=== PATIENT | female | born 1980 | race Caucasian/White ===

== ENCOUNTER 2016-11-07 00:08 | Inpatient (IN) | payer OTHER ==
[2016-11-07 01:10] LABS: Hematocrit 37 % (35-47); Hemoglobin 12.3 g/dl (12.0-16.0); Mean Corpuscular HGB Conc 34 g/dl (31-36); Mean Corpuscular Hemoglobin 27 pg (27-31); Mean Corpuscular Volume 79 fL (80-97); Mean Platelet Volume 9 um3 (7.4-10.4); Red Cell Distribution Width 14 % (10.5-15); White Blood Count 14.5 10^3/ul (3.5-10.8)
[2016-11-07] MEDS ORDERED: Glycerin ADULT SUPP PR PRN (03:15)
[2016-11-07] MEDS ORDERED: Witch Hazel PAD* JAR TOPICAL PRN (03:15)
[2016-11-07] MEDS ORDERED: OXYTOCIN* 10 UNITS/ML 1 ML VIAL IM ONE (03:15)
[2016-11-07] MEDS ORDERED: Dibucaine 1% 28.35 GM TUBE PR PRN (03:15)
[2016-11-07] MEDS ORDERED: Acetaminophen TAB* 325 MG PO PRN (03:15)
[2016-11-07] MEDS: Ibuprofen TAB* 600 MG PO PRN ×4 (03:32→22:58)
[2016-11-07] MEDS ORDERED: Simethicone CHEW TAB* 80 MG PO SCH (08:30)
[2016-11-07] MEDS: Docusate CAP* 100 MG PO SCH ×4 (10:17→20:41)
[2016-11-08] MEDS: Ibuprofen TAB* 600 MG PO PRN ×3 (05:58→18:05)
[2016-11-08 07:04] LABS: Hematocrit 29 % (35-47); Hemoglobin 9.9 g/dl (12.0-16.0); Mean Corpuscular HGB Conc 34 g/dl (31-36); Mean Corpuscular Hemoglobin 27 pg (27-31); Mean Corpuscular Volume 79 fL (80-97); Mean Platelet Volume 8 um3 (7.4-10.4); Red Blood Count 3.67 10^6/ul (4.0-5.4); Red Cell Distribution Width 14 % (10.5-15); White Blood Count 15.3 10^3/ul (3.5-10.8)
[2016-11-08] MEDS: Ferrous Gluconate TAB* 324 MG TAB PO SCH ×2 (08:20→21:00)
[2016-11-08] MEDS: Docusate CAP* 100 MG PO SCH ×3 (08:20→21:00)
[2016-11-09] MEDS: Ibuprofen TAB* 600 MG PO PRN ×2 (00:09→08:32)
[2016-11-09 08:00] VITALS: BP 105/65
[2016-11-09] MEDS: Docusate CAP* 100 MG PO SCH (08:32)
[2016-11-09] MEDS ORDERED: RHO D Immune Globulin (HUMAN)* 300 MCG = 1,500 I.U. INJ IM ONE (10:44)
== END 2016-11-09 11:17 | disposition home or self-care (01) | DRG 775 ==
LOC: MCHOBOUT 00:08 → MCHOB 01:04
PROVIDERS: ADMIT Obstetrics & Gynecology; ATTEND Obstetrics & Gynecology
PROC: 10E0XZZ Delivery of Products of Conception, External Approach (ICD-10-PCS; principal; 2016-11-07)
PROC: 10907ZC Drainage of Amniotic Fluid, Therapeutic from Products of Conception, Via Natural or Artificial Opening (ICD-10-PCS; 2016-11-07)
PROC: 0HQ9XZZ Repair Perineum Skin, External Approach (ICD-10-PCS; 2016-11-07)
PROC: 4A1HXCZ Monitoring of Products of Conception, Cardiac Rate, External Approach (ICD-10-PCS; 2016-11-07)
DX: O70.0 First degree perineal laceration during delivery (principal); O90.81 Anemia of the puerperium; Z37.0 Single live birth; O09.523 Supervision of elderly multigravida, third trimester; Z3A.39 39 weeks gestation of pregnancy
CPT/HCPCS: 36415; 85025; 85027; 85461; 86850; 86900; 86901; A9270-GY; J2590; J2790

== ENCOUNTER 2018-04-01 13:38 | Emergency (ER) | payer OTHER ==
--- NOTE | 2018-04-01 14:10 | ED ---
Shortness of Breath - HPI Summary HPI Summary: This patient is a 37 year old F presenting to [facility] with a chief complaint of shortness of breath since 13:00. Patient notes she feels like she cant take a deep breath and like her chest is tight. Patient reports her symptoms began after she came home from a hike today. Patient is 14 weeks in her 3rd . The patient rates the pain 0/10 in severity. Symptoms aggravated by nothing. Symptoms alleviated by nothing. Patient reports rapid heart rate, discomfort in back left of rib cage. Patient also notes intermittent pain in her right calf for 1 month. Patient denies any abdominal cramps, fever, diaphoresis, chills, rash, cough, back pain, dysuria, or lower extremity edema. Patient denies any PMHx. Patient takes vitamins. Patient reports that she took a [address] trip, 4 hours in total, but took breaks along the way. - History of Current Complaint Chief Complaint: EDShortnessOfBreath Time Seen by Provider: 04/01/18 13:50 Hx Obtained From: Patient Onset/Duration: Sudden Onset, Lasting Hours - 1 hour, Still Present Timing: Constant Current Severity: Mild Dyspnea At: Rest Aggrevating Factors: Nothing Alleviating Factors: Nothing - Allergy/Home Medications Allergies/Adverse Reactions: Allergies Allergy/AdvReac Type Severity Reaction Status Date / Time No Known Allergies Allergy Verified 04/01/18 13:47 PMH/Surg Hx/FS Hx/Imm Hx Endocrine/Hematology History: Denies: Hx Diabetes, Hx Thyroid Disease Cardiovascular History: Denies: Hx Hypertension Respiratory History: Denies: Hx Asthma, Hx Chronic Obstructive Pulmonary Disease (COPD) GI History: Denies: Hx Ulcer - Surgical History Surgery Procedure, Year, and Place: none Infectious Disease History: No Infectious Disease History: Denies: Hx Hepatitis, Hx Human Immunodeficiency Virus (HIV), Traveled Outside the [place] in Last 30 Days - Family History Known Family History: Positive: None - patient denies relevant FHx - Social History Alcohol Use: None Substance Use Type: Reports: None Smoking Status (MU): Never Smoked Tobacco Review of Systems Negative: Fever, Chills Negative: Erythema Negative: Sore Throat Positive: Palpitations - rapid heartrate. Negative: Chest Pain Positive: Shortness Of Breath. Negative: Cough Negative: Abdominal Pain, Vomiting, Nausea Negative: dysuria, hematuria Negative: Myalgia, Edema Negative: Rash Neurological: Other - negative dizziness All Other Systems Reviewed And Are Negative: Yes Physical Exam - Summary Physical Exam Summary: Constitutional: Well-developed, Well-nourished, Alert. Appears anxious. Skin: Warm, Dry HENT: Normocephalic; Atraumatic Eyes: Conjunctiva normal Neck: Musculoskeletal ROM normal neck. (-) JVD, (-) Stridor, (-) Tracheal deviation Cardio: Heart sounds normal; Intact distal pulses; The pedal pulses are 2+ and symmetric. Radial pulses are 2+ and symmetric. (-) Murmur. HR is between 120 and 130 bpm and is regular Pulmonary/Chest wall: Effort normal. (-) Respiratory distress, (-) Wheezes, (-) Rales Abd: Soft, (-) epigastric tenderness, (-) Distension, (-) Guarding, (-) Rebound Musculoskeletal: (-) Edema Lymph: (-) Cervical adenopathy Neuro: Alert, Oriented x3 Psych: Mood and affect Normal Triage Information Reviewed: Yes Vital Signs On Initial Exam: Initial Vitals Temp Pulse Resp BP Pulse Ox 97.8 F 133 22 130/91 100 04/01/18 13:43 04/01/18 13:43 04/01/18 13:43 04/01/18 13:43 04/01/18 13:43 Vital Signs Reviewed: Yes Diagnostics - Vital Signs Vital Signs Temp Pulse Resp BP Pulse Ox 04/01/18 13:43 97.8 F 133 22 130/91 100 - Laboratory Result Diagrams: 04/01/18 14:36 04/01/18 14:36 Lab Statement: Any lab studies that have been ordered have been reviewed, and results considered in the medical decision making process. - CT CTA Chest CT Interpretation: No Acute Changes - IMPRESSION: No evidence of pulmonary embolus is noted. No evidence of alveolar consolidation is noted. Dr. Walker has reviewed this report. CT Interpretation Completed By: Radiologist - EKG 14:18 Cardiac Rate: Tachycardia - at 116 bpm EKG Rhythm: Sinus Tachycardia - junctional EKG Interpretation: Junctional tachycardia at 116 bpm - Additional Comments Diagnostic Additional Comments: Venous Doppler Study Interpreted by radiologist. IMPRESSION: NO EVIDENCE OF DEEP VENOUS THROMBOSIS IS IDENTIFIED. Dr. Walker has reviewed this report. Re-Evaluation - Re-Evaluation 1st re-evaluation Re-Evaluation Time: 15:45 Change: Unchanged Comment: Discussed imaging results with patient. She agreed to the CTA Chest. 2nd re-eval Re-Evaluation Time: 16:37 Change: Unchanged Comment: Patient states that her resting HR is usually between 50-50 bpm and when she exerts herself it is around 70 bpm. 3rd re-eval Re-Evaluation Time: 17:15 Change: Improved Comment: Pt spontaneously converted to NSR. Discussed discharge plan with patient. Course/Dx - Course Course Of Treatment: This patient is a 14 week 37 year old F reporting shortness of breath and rapid HR since 13:00. Patient also notes intermittent right calf pain since 1 month ago. Explained the risks of radiation from imaging on the baby. Patient notes she has already discussed this with her engineering drawings checker, Gricel, and she had cleared her for imaging as needed. An EKG reveals junctional tachycardia at 116 bpm. Patient consented to the CTA chest. Venous Doppler study reveals, per radiologist, no evidence of DVT. CTA chest reveals, per radiologist, No evidence of pulmonary embolus is noted. No evidence of alveolar consolidation is noted. ED physician has reviewed these radiology reports. Discussed care with Dr. Salas, cash control specialist at 15:00. He recommends a pulmonary embolism workup and does not believe her symptoms are related to HR. Dr. Salas recommended getting a troponin level and giving adenosine and beta blockers if the CTA chest was negative. Test results with no significant abnormalities. In the ED course the patient was given contrast and adenosine. Pt spontaneously converted from SVT to normal cardiac rhythm in the 80s. SOB resolved at the same time she converted. At 17:11 Dr. Salas, cash control specialist, recommended giving beta blockers but given that it is category C in and she converted, we will hold off. Discussed this with patient and she agreed. Patient will be discharged home with follow up from cardiology, [facility], and PCP in 2-3 days. The patient is agreeable with this plan. - Diagnoses Provider Diagnoses: SVT (supraventricular tachycardia) - Physician Notifications Discussed Care of Patient With: Jose Salas Time Discussed With Above Provider: 15:00 Instructed by Provider To: Other - Dr. Salas recommended a pulmonary embolism workup. He did not believe her symptoms were related to HR. At 16:05, Dr. Salas recommended taking the patient's troponin and giving her adenosine and beta blockers if the CTA Chest is negative. At 17:11, Dr. Salas Discharge - Sign-Out/Discharge Documenting (check all that apply): Patient Departure - Discharge Plan Condition: Stable Disposition: HOME Patient Education Materials: Supraventricular Tachycardia (ED) Referrals: Kathrin Lezama MD [Primary Care Provider] - 2 Days (Follow up with primary care physician in 2-3 days) [facility] [Outside] - 2 Days Jose Salas DO [Medical Doctor] - 2 Days Additional Instructions: Follow up with Dr. Salas, cash control specialist, as well as primary care physician and [facility] in 2-3 days. Return the emergency department with any new or worsening symptoms. - Attestation Statements Document Initiated by Scribe: Yes Documenting Scribe: Melany Coombs Provider For Whom Scribe is Documenting (Include Credential): Fabrice Walker MD Scribe Attestation: Melany Lopez, scribed for Fabrice Walker MD on 04/01/18 at 1712.
[2018-04-01 14:43] LABS: Hematocrit 37 % (35-47); Hemoglobin 12.6 g/dl (12.0-16.0); Mean Corpuscular HGB Conc 34 g/dl (31-36); Mean Corpuscular Hemoglobin 28 pg (27-31); Mean Corpuscular Volume 81 fL (80-97); Mean Platelet Volume 8.8 um3 (7.4-10.4); Platelet Count 212 10^3/ul (150-450); Red Blood Count 4.55 10^6/ul (4.00-5.40); Red Cell Distribution Width 14 % (10.5-15); White Blood Count 10.7 10^3/ul (3.5-10.8)
[2018-04-01 15:04] LABS: EGFR Non-African American 96.3 (>60)
--- NOTE | 2018-04-01 15:36 | RAD ---
Indication: Right calf pain. Duplex Doppler sonography of the deep venous system of the right lower extremity deep venous system was performed. Bilaterally the common femoral veins appear patent and compressible. Right proximal greater saphenous vein, proximal deep femoral vein, femoral vein, popliteal vein, posterior tibial veins and peroneal veins appear patent and compressible. IMPRESSION: NO EVIDENCE OF DEEP VENOUS THROMBOSIS IS IDENTIFIED.
[2018-04-01] MEDS ORDERED: Iohexol 350* (CONTRAST) 500 ML MDV IV ONE (15:45)
--- NOTE | 2018-04-01 16:11 | RAD ---
Indication: Pleuritic chest pain, shortness of breath Contrast: Administered 60.0 ml of OMNIPAQUE 350 mg/ml CTA of the chest performed after IV contrast administration. Coronal and sagittal reconstructed images were obtained. The pulmonary arterial tree is well opacified. There are no filling defects present to suggest pulmonary embolus. There is no mediastinal or hilar adenopathy noted. The heart demonstrates no pericardial effusion. The trachea and major bronchi appear patent. Lung kirby demonstrate no pleural fluid, pneumonia or pneumothorax. No evidence of alveolar consolidation is noted. The visualized abdominal organs are unremarkable. The visualized bony structures are grossly unremarkable. IMPRESSION: No evidence of pulmonary embolus is noted. No evidence of alveolar consolidation is noted.
[2018-04-01] MEDS ORDERED: Adenosine* 3 MG/ML VIAL IV PUSH ONE (16:30)
[2018-04-01 17:37] VITALS: BP 107/72
== END 2018-04-01 17:36 | disposition home or self-care (01) ==
LOC: ED 13:38
DX: I47.1 Supraventricular tachycardia (principal); R00.2 Palpitations; R06.02 Shortness of breath
CPT/HCPCS: 36415; 71275; 80048; 84439; 84443; 84484; 85027; 85652; 86140; 93005; 96374; 99283; Q9967

== ENCOUNTER 2018-09-20 06:11 | Inpatient (IN) | payer OTHER ==
[2018-09-20] MEDS ORDERED: Penicillin G Potassium IV* 5,000,000 UNITS in NS 0.9% 100 ML* 100 ML IVPB ONE (06:28)
[2018-09-20] MEDS ORDERED: Buffered Lidocaine 1% SYRIN* 1 ML/SYRINGE INTRADERM ONE (06:28)
[2018-09-20] MEDS ORDERED: Lactated Ringers 1000 ML Bag* 1,000 ML IV ONE (06:28)
[2018-09-20] MEDS ORDERED: Penicillin G Potassium IV* 5 MILLION.UNITS VIAL ONE (06:28)
[2018-09-20] MEDS ORDERED: Lactated Ringers 1000 ML Bag* 1,000 ML IV SCH ×2 (07:00→08:00)
[2018-09-20] MEDS ORDERED: Oxytocin in LR* 0 UNITS/0 ML BAG IVPB ONE (07:10)
[2018-09-20 07:13] LABS: ABS Basophils 0.1 10^3/ul (0-0.2); ABS Eosinophils 0 10^3/ul (0-0.6); ABS Lymphocytes 2.3 10^3/ul (1.0-4.8); ABS Monocytes 0.8 10^3/ul (0-0.8); ABS Neutrophils 8.9 10^3/ul (1.5-7.7); ABS Nucleated RBC 0 10^3/ul; Eosinophil % 0.4 %; Hematocrit 37 % (35-47); Hemoglobin 12.2 g/dl (12.0-16.0); Mean Corpuscular HGB Conc 34 g/dl (31-36); Mean Corpuscular Hemoglobin 27 pg (27-31); Mean Corpuscular Volume 80 fL (80-97); Mean Platelet Volume 8.5 fL (7.4-10.4); Nucleated Red Blood Cells % 0.1; Platelet Count 269 10^3/ul (150-450); Red Blood Count 4.57 10^6/ul (4.00-5.40); Red Cell Distribution Width 14 % (10.5-15); White Blood Count 12.1 10^3/ul (3.5-10.8)
[2018-09-20] MEDS ORDERED: Ibuprofen TAB* 600 MG ONE (07:31)
[2018-09-20] MEDS ORDERED: Dibucaine 1% 28.35 GM TUBE PR PRN (07:44)
[2018-09-20] MEDS ORDERED: Acetaminophen TAB* 325 MG PO PRN (07:44)
[2018-09-20] MEDS ORDERED: Glycerin ADULT SUPP PR PRN (07:44)
[2018-09-20] MEDS ORDERED: Witch Hazel PAD* JAR TOPICAL PRN (07:44)
--- NOTE | 2018-09-20 07:57 | HP ---
General Information - Reason for Visit labor - General Information Maternal Age: 38 Grav: 3 Para: 2 SAB: 0 IEA: 0 Estimated Due Date: 09/26/18 Determined By: Early Ultrasound Maternal Blood Type and Rh: A Negative - Results this Serology/RPR Result: Non-Reactive Rubella Result: Immune HBsAg Result: Negative HIV Result: Negative GBS Culture Result: Positive Past Medical History Delivery History: Hx Uncomplicated Vaginal Delivery Pertinent Past Medical History: Non-Contributory Pertinent Past Surgical History: None Pertinent Family History: Non-Contributory - Antepartal Records Antepartal Records: Reviewed, Uncomplicated Review of Systems Constitutional: Comfortable CV Complaint: No Respiratory: Shortness of Breath: No Gastrointestinal: No Nausea/Vomiting Genitourinary: Leaking Fluid, No Bleeding Musculoskeletal: No Epigastric Pain, Contractions Movement: Normal Exam Allergies/Adverse Reactions: Allergies No Known Allergies Allergy (Verified 04/01/18 13:47) Vital Signs 09/20/18 07:45 Temperature 97.6 F Pulse Rate 84 Respiratory 18 Rate Blood Pressure 111/63 (mmHg) Lab Values - Entire Visit: Laboratory Tests 09/20/18 09/20/18 06:33 06:33 WBC 12.1 H RBC 4.57 Hgb 12.2 Hct 37 MCV 80 MCH 27 MCHC 34 RDW 14 Plt Count 269 MPV 8.5 Neut % (Auto) 73.2 Lymph % (Auto) 19.0 [place] % (Auto) 6.6 Eos % (Auto) 0.4 Baso % (Auto) 0.8 Absolute Neuts (auto) 8.9 H Absolute Lymphs (auto) 2.3 Absolute Monos (auto) 0.8 Absolute Eos (auto) 0 Absolute Basos (auto) 0.1 Absolute Nucleated RBC 0 Nucleated RBC % 0.1 Blood Type A Negative Antibody Screen Positive - Measurements Height: 5 ft 6 in Weight: 160 lb Weight in lbs: 160.242641 Body Mass Index (BMI): 25.8 Pre- Weight: 128 lb Weight Gained This : 32 lbs and 0 ozs - Exam Breast: Breast Exam Deferred Heart: Normal Rhythm/Heart Sounds - Ultrasound/Biophysical Profile Ultrasound Status: Not Done Targeted Exam Findings See L&D Outpatient Visit Provider Note for Findings: Yes Cervical Exam: Rim Effacement: 100% Station: +2 Presenting Part: Vertex Membrane Status: Intact Bleeding/Discharge: None EFM Findings - External Monitor Findings Baseline Heart Rate: 135 External Monitor Findings: Accelerations Present, No Pattern of Variable or Late Decelerations, Variability Moderate, Baseline Stable Contractions: Regular Assessment/Plan - Assessment Active labor. - Obstetrical Risk Factors Obstetrical Risk Factors: GBS Positive - Plan Plan: Antibiotic Prophylaxis, Admit - Anticipate Vaginal Delivery
--- NOTE | 2018-09-20 08:25 | PROCNOTE ---
[facility] OB: Delivery Note - Delivery A Date of : 09/20/18 Time of : 07:01 Bonnie Sex: Male Weight at : 8 lb 12 oz Score 1 Minute: 9 Score 5 Minutes: 9 Gestational Age in Weeks and Days at Delivery: 39 Weeks and 1 Days Delivery Method: Spontaneous Vaginal Labor: Spontaneous Did Patient attempt ?: N/A, No Previous Amniotic Fluid: Clear Estimated Blood Loss: 300 Anesthesia/Analgesia: None Delivered By: Irais Patel - Nursery Level of Nursery: Regular/Bedside - Perineum Perineal Injury: Perineal Laceration, 1st Degree - Events Delivery Events of Note: Partial Course of Antibiotics - Additional Delivery Notes Additional Delivery Notes: Pt arrived in active labor, received her GBS prophylaxis and then underwent AROM. She was fully dilated at this point. She pushed about 10min to deliver the infant in ASIA position followed by the shoulders and the rest of the body. The baby was placed on mom's abdomen. After >1min the cord was clamped x2 and cut by dad. The placenta delivered with gentle cord traction and fundal massage. A small first degree lac was repaired with 2 [id number] sutures. Fundus was firm with good hemostasis. Mom and baby stable.
[2018-09-20] MEDS: Docusate CAP* 100 MG PO SCH ×3 (08:40→21:39)
[2018-09-20] MEDS: Ibuprofen TAB* 600 MG PO PRN ×2 (15:24→21:25)
[2018-09-21] MEDS: Ibuprofen TAB* 600 MG PO PRN ×3 (03:48→17:06)
[2018-09-21 05:49] LABS: Hematocrit 28 % (35-47); Hemoglobin 9.4 g/dl (12.0-16.0); Mean Corpuscular HGB Conc 34 g/dl (31-36); Mean Corpuscular Hemoglobin 27 pg (27-31); Mean Corpuscular Volume 80 fL (80-97); Mean Platelet Volume 7.7 fL (7.4-10.4); Platelet Count 235 10^3/ul (150-450); Red Blood Count 3.48 10^6/ul (4.00-5.40); Red Cell Distribution Width 14 % (10.5-15); White Blood Count 13.2 10^3/ul (3.5-10.8)
[2018-09-21 06:53] LABS: ABS Basophils 0.1 10^3/ul (0-0.2); ABS Eosinophils 0.1 10^3/ul (0-0.6); ABS Lymphocytes 2.8 10^3/ul (1.0-4.8); ABS Monocytes 0.9 10^3/ul (0-0.8); ABS Neutrophils 9.4 10^3/ul (1.5-7.7); ABS Nucleated RBC 0 10^3/ul; Eosinophil % 0.8 %; Lymphocyte % 21.3 %; Nucleated Red Blood Cells % 0
[2018-09-21] MEDS: Ferrous Gluconate TAB* 324 MG TAB PO SCH ×2 (10:42→21:14)
[2018-09-21] MEDS: Docusate CAP* 100 MG PO SCH ×3 (10:43→21:10)
[2018-09-21] MEDS: Simethicone TAB* 80 MG TAB.CHEW PO SCH ×2 (10:56→10:57)
[2018-09-21] MEDS: Penicillin G Potassium IV* 2,500,000 UNITS in NS 0.9% 100 ML* 100 ML IVPB SCH (10:56)
[2018-09-21] MEDS ORDERED: RHO D Immune Globulin (HUMAN)* 300 MCG = 1,500 I.U. INJ IM ONE (14:28)
[2018-09-22] MEDS: Ibuprofen TAB* 600 MG PO PRN ×2 (00:16→06:38)
[2018-09-22 07:44] VITALS: BP 107/67
[2018-09-22] MEDS: Docusate CAP* 100 MG PO SCH (07:47)
[2018-09-22] MEDS: Ferrous Gluconate TAB* 324 MG TAB PO SCH (09:29)
== END 2018-09-22 10:00 | disposition home or self-care (01) | DRG 807 ==
LOC: MCHOBOUT 06:11 → MCHOB 06:12
PROVIDERS: ADMIT Obstetrics & Gynecology; ATTEND Obstetrics & Gynecology
PROC: 10E0XZZ Delivery of Products of Conception, External Approach (ICD-10-PCS; principal; 2018-09-20)
PROC: 10907ZC Drainage of Amniotic Fluid, Therapeutic from Products of Conception, Via Natural or Artificial Opening (ICD-10-PCS; 2018-09-20)
PROC: 0HQ9XZZ Repair Perineum Skin, External Approach (ICD-10-PCS; 2018-09-20)
DX: O99.824 Streptococcus B carrier state complicating childbirth (principal); Z37.0 Single live birth; O70.0 First degree perineal laceration during delivery; O40.3XX0 Polyhydramnios, third trimester, not applicable or unspecified; O90.81 Anemia of the puerperium; D64.9 Anemia, unspecified; Z3A.39 39 weeks gestation of pregnancy
CPT/HCPCS: 36415; 85025; 85461; 86850; 86870; 86880; 86900; 86901; A9270-GY; J2540; J2790